=== PATIENT | female | born 1975 | race Caucasian/White ===

== ENCOUNTER → 2018-04-03 | Outpatient (CLI) | payer OTHER | LOC: FIMAGING 13:50 | PROVIDERS: ATTEND Physician Assistant | DX: N83.8 Other noninflammatory disorders of ovary, fallopian tube and broad ligament (principal) ==

== ENCOUNTER 2018-10-02 09:29 | Day surgery (SDC) | payer OTHER ==
[2018-10-02] MEDS ORDERED: BUPIVACAINE 0.5% 30 ML SDV ONE (09:55)
[2018-10-02] MEDS ORDERED: LR 1,000 ML IV ONE (10:12)
--- NOTE | 2018-10-02 10:58 | PDHPUP ---
History & Physical Update H&P update statement: This history and physical update is based on an assessment of the patient which was completed after admission or registration (within 24 hours), but prior to the surgery/procedure. H&P update: H&P reviewed & patient examined, no change in patient's condition since H&P completed (No change in H or P . Normal resp and cardio exam.), changes noted
[2018-10-02] MEDS ORDERED: ceFAZolin 3 GM in D5W 100 ML IV ONE (10:59)
[2018-10-02] MEDS ORDERED: CEFAZOLIN 2 GM/DEXTROSE/100 ML BAG IV ONE (11:02)
[2018-10-02] MEDS ORDERED: CEFAZOLIN 1 GM/DEXTROSE/50 ML BAG IV ONE (11:03)
[2018-10-02 11:04] LABS: INR 0.96 (0.83-1.16); PROTIME(PATIENT) 12.4 SEC (12.0-15.0)
[2018-10-02] MEDS ORDERED: SCOPOLAMINE HYDROBROMIDE 1 MG/3 DAYS PATCH TD ONE ×2 (11:06)
[2018-10-02] MEDS ORDERED: MIDAZOLAM 2 MG/2 ML VIAL IVP ONE (11:06)
--- NOTE | 2018-10-02 11:15 | PDANEPAE ---
ANE Past Medical History - Cardiovascular History Hx Hypertension: No Hx Arrhythmias: No Hx Chest Pain: No Hx Coronary Artery / Peripheral Vascular Disease: No Hx CHF / Valvular Disease: No Hx Palpitations: No - Pulmonary History Hx COPD: No Hx Asthma/Reactive Airway Disease: No Hx Recent Upper Respiratory Infection: No Hx Oxygen in Use at Home: No Hx Sleep Apnea: No Sleep Apnea Screening Result - Last Documented: Negative - Neurologic History Hx Cerebrovascular Accident: No Hx Seizures: No Hx Dementia: No - Endocrine History Hx Diabetes: No - Renal History Hx Renal Disorders: No - Liver History Hx Hepatic Disorders: No - Neurological & Psychiatric Hx Hx Neurological and Psychiatric Disorders: No - Cancer History Hx Cancer: No - Congenital Disorder History Hx Congenital Disorders: No - GI History Hx Gastrointestinal Disorders: No - Other Health History Other Health History: SNOWBOARDING FELL ON ELBOW 09/25/18. OCCASIONAL ECZEMA. HX OF DVT'S MULTIPLE TIMES THROUGHOUT LIFE - Chronic Pain History Chronic Pain: No - Surgical History Prior Surgeries: DVT LT GROIN WITH STENT 2008. COLONOSCOPY ANE Review of Systems Review of Systems: - Exercise capacity METS (RN): 6 METS ANE Patient History - Allergies Allergies/Adverse Reactions: No Known Allergies Allergy (Unverified 09/06/14 21:25) - Home Medications Home Medications: Warfarin Sodium [Coumadin 5MG (RX)] HS 09/06/14 [Last Taken 10/01/18] Advil TID 09/30/18 [Last Taken 10/01/18] - NPO status NPO Since - Liquids (Date): 10/02/18 NPO Since - Liquids (Time): 05:30 NPO Since - Solids (Date): 10/01/18 NPO Since - Solids (Time): 20:30 - Smoking Hx Smoking Status: Former smoker - Family Anes Hx Family Hx Anesthesia Complications: NEG ANE Labs/Vital Signs - Vital Signs Vital Signs: reviewed preoperatively; see RN documention for details Blood Pressure: 129/79 Heart Rate: 92 Respiratory Rate: 24 O2 Sat (%): 97 Height: 162.56 cm Weight: 83.915 kg ANE Physical Exam - Airway Neck exam: FROM Mallampati Score: Class 1 Mouth exam: normal dental/mouth exam - Pulmonary Pulmonary: clear to auscultation - Cardiovascular Cardiovascular: regular rate and rhythym - ASA Status ASA Status: II ANE Anesthesia Plan Anesthesia Plan: general endotracheal anesthesia
[2018-10-02] MEDS ORDERED: PROPOFOL 200 MG/20 ML VIAL ONE (11:16)
[2018-10-02] MEDS ORDERED: PROPOFOL/EMULSION 500 MG/50 ML BOTTLE IV ONE ×2 (11:16→12:33)
[2018-10-02] MEDS ORDERED: fentaNYL 100 MCG/2 ML INJ ONE ×2 (11:16→13:43)
[2018-10-02] MEDS ORDERED: ROCURONIUM 50 MG/5 ML VIAL ONE (11:19)
[2018-10-02] MEDS ORDERED: ceFAZolin 2 GM/DEXTROSE 100 ML IV ONE (11:30)
[2018-10-02] MEDS ORDERED: DEXAMETHASONE 4 MG/ML VIAL ONE (11:53)
[2018-10-02] MEDS ORDERED: HYDROmorphONE/DILAUDID 2 MG/ML INJ ONE (11:55)
[2018-10-02] MEDS ORDERED: METOCLOPRAMIDE 10 MG/2 ML VIAL ONE (12:00)
[2018-10-02] MEDS ORDERED: KETOROLAC 30 MG/1 ML SDV ONE (13:04)
[2018-10-02] MEDS ORDERED: ONDANSETRON 4 MG/2 ML VIAL ONE (13:04)
[2018-10-02] MEDS ORDERED: NALOXONE HCL 0.4 MG/ML INJ IVP PRN (13:06)
[2018-10-02] MEDS ORDERED: DIAZEPAM 5 MG/ML 1 ML SYR IVP PRN (13:06)
[2018-10-02] MEDS ORDERED: DEXAMETHASONE 4 MG/ML VIAL IVP PRN (13:06)
[2018-10-02] MEDS ORDERED: HYDROmorphONE/DILAUDID 1 MG/ML INJ IVP PRN (13:06)
[2018-10-02] MEDS ORDERED: ACETAMINOPHEN 500 MG TAB PO PRN (13:06)
[2018-10-02] MEDS ORDERED: METOCLOPRAMIDE 10 MG/2 ML VIAL IVP PRN (13:06)
[2018-10-02] MEDS ORDERED: ONDANSETRON 4 MG/2 ML VIAL IVP PRN (13:06)
[2018-10-02] MEDS ORDERED: ALBUTEROL 3 ML DEYVIAL IH PRN (13:06)
[2018-10-02] MEDS ORDERED: PROMETHAZINE HCL 25 MG/ML INJ IVP PRN (13:06)
[2018-10-02] MEDS ORDERED: LR 500 ML IV PRN (13:06)
[2018-10-02] MEDS ORDERED: oxyCODONE IR 5 MG TAB PO PRN (13:06)
[2018-10-02] MEDS ORDERED: MEPERIDINE 25 MG/0.5 ML AMP IVP PRN (13:06)
[2018-10-02] MEDS: fentaNYL 100 MCG/2 ML INJ IVP PRN ×3 (13:45→14:15)
[2018-10-02] MEDS ORDERED: DIAZEPAM 5 MG/ML 1 ML SYR ONE (14:23)
--- NOTE | 2018-10-02 14:41 | GOP ---
[f rep st] OPERATIVE REPORT DATE OF OPERATION: 10/02/2018 SURGEON: Solo Rubin MD PREOPERATIVE DIAGNOSIS: Comminuted intraarticular capitellar fracture. POSTOPERATIVE DIAGNOSIS: Comminuted intraarticular capitellar fracture with lateral collateral ligam ent injury. PROCEDURE PERFORMED: Open reduction and internal fixation of comminuted intraarticular capitellar fr acture and radial collateral ligament repair. FINDINGS: INDICATIONS: This patient had a very comminuted capitellar fracture made up of at least 7 sizable pi eces and some small gravelly bits and also the lateral aspect of the elbow, the soft tissues had been torn during the fall and lateral collateral ligament and common extensor origin were ruptured. It w as felt that surgical repair to restore alignment and repair ligamentous structures would be a good o ption for her. DESCRIPTION OF PROCEDURE: Under general anesthesia, the patient's left arm was prepped and draped in the usual fashion. Arm tourniquet applied at 250 mmHg. It was noted at the beginning of surgery th at the elbow extended pretty well, was unstable laterally and had no flexion past 100 degrees. The r adial capitellar joint was exposed through a longitudinal lateral incision. Skin and subcutaneous ti ssue were reflected. One branch of the lateral antebrachial cutaneous nerve was identified and prote cted. The common extensor origin and lateral collateral ligament had been ruptured. A longitudinal split and elevation proximally and distally revealed the radial capitellar joint. The elbow flexion had been prevented by a large capitellar fragment lying anteriorly. The capitellum was completely di srupted, and fragments were eventually aligned like a jigsaw puzzle, restoring smooth articular surfa ce and aligning the fragments; but because of the number of small fragments, screw fixation or plate fixation was not possible. K-wires were used to stabilize all the fragments on each other, and x-ray s done in the operating room as well as direct visualization revealed smooth articular surfaces and g ood alignment of the radial capitellar joint. The lateral collateral ligament and the common extenso r origin were repaired using 2-0 Vicryl sutures. The repair was performed to surrounding periosteum and stumps of torn tissue. Then the subcutaneous tissue was closed with 4-0 PDS. Skin closed loosel y with horizontal mattress sutures and simple sutures of 4-0 Prolene. The loose closure was both bec ause of the amount of swelling and also in order to allow escape of bleeding in the postoperative are a. The patient was to start her Coumadin again in 24 hours. The tourniquet was deflated, and there were no areas of bleeding. A bulky soft pressure dressing was applied, followed by fiberglass morgue librarian ior splint held in place with an Bishop bandage. The splint was applied in 80 degrees of flexion, and t here was some interference of the K-wires used to fixate with elbow motion, but it was felt that each one of the K-wires could be removed at a second sitting in the operating room. Each one of the K-wi res had been cut off just outside of the bony surface in order to allow repair of the overlying soft tissues. The patient was brought to the recovery area. Detailed postoperative instructions given pr ior to discharge. A prescription for [place] and Keflex was provided. She had been given 2 g of Ancef prior to commencement of surgery, followup arrangements in the office for about a week postop for dr hollis and suture removal and cast application for 4 additional weeks before re-x-ray. /[id number]/MODL
[2018-10-02] MEDS ORDERED: oxyCODONE IR 5 MG TAB ONE (14:54)
[2018-10-02 16:43] VITALS: BP 138/84
== END 2018-10-02 17:00 | disposition home or self-care (01) ==
LOC: FSGY 09:29
PROVIDERS: ATTEND Specialist
PROC: 0PSD04Z Reposition Left Humeral Head with Internal Fixation Device, Open Approach (ICD-10-PCS; principal; 2018-10-02 11:15)
PROC: 0MQ40ZZ Repair Left Elbow Bursa and Ligament, Open Approach (ICD-10-PCS; principal; 2018-10-02 11:15)
DX: S42.452A Displaced fracture of lateral condyle of left humerus, initial encounter for closed fracture (principal); S53.22XA Traumatic rupture of left radial collateral ligament, initial encounter; V00.311A Fall from snowboard, initial encounter; Y93.23 Activity, snow (alpine) (downhill) skiing, snowboarding, sledding, tobogganing and snow tubing; Y92.838 Other recreation area as the place of occurrence of the external cause; Y99.0 Civilian activity done for income or pay; Z86.718 Personal history of other venous thrombosis and embolism; Z79.01 Long term (current) use of anticoagulants
CPT/HCPCS: C1713; J0690; J1100; J1170; J1885; J2250; J2405; J2704; J2765; J3010; J3360

== ENCOUNTER → 2018-10-16 | Outpatient (CLI) | payer OTHER | LOC: FIMAGING 15:06 | PROVIDERS: ATTEND Clinical Nurse Specialist Adult Health | DX: Z00.00 Encounter for general adult medical examination without abnormal findings (principal); R60.9 Edema, unspecified ==

== ENCOUNTER → 2018-11-21 | Outpatient (CLI) | payer OTHER | LOC: FIMAGING 15:58 | PROVIDERS: ATTEND Family Medicine | DX: M79.652 Pain in left thigh (principal) ==